=== PATIENT | female | born 1990 | race Caucasian/White ===

== ENCOUNTER 2021-02-13 00:07 | Inpatient (IN) | payer OTHER ==
[~2021-02-13] VITALS: Ht 172.7 cm; Wt 61.2 kg
[2021-02-14] VITALS (38 sets, daily range): BP systolic 68–125; BP diastolic 42–75
--- NOTE | 2021-02-14 01:26 | NUR ---
PT ARRIVED TO UNIT ACCOMPANIED BY EMT AT 0040. PT DROWSY, REFUSING TO COOPERATE WITH STAFF AND ASKING TO "BE LEFT ALONE." PT SETTLED IN BED BY STAFF. BRINE MIXER OPERATOR NOTIFIED OF PT'S ARRIVAL AT 0100 AND ARRIVED TO BEDSIDE AT 0110. PER BRINE MIXER OPERATOR WE WILL RESUME THE INSULIN GTT AT 23.5 AND NS AT 125 ML/HR. PT ST ON MONITOR WITH RATE IN THE 130s. BP SOFT 97/45 WTIH MAP 64. WILL CONTINUE TO MONITOR.
[2021-02-14 01:46] LABS: HEMATOCRIT 31.9 % (37.0-47.0); HEMOGLOBIN 10.3 gm/dL (12.0-15.0); MCH 29.4 pg (26.0-34.0); MCHC 32.1 g/dL (28.0-37.0); MCV 91.6 fL (80.0-100.0); PLATELET COUNT 373 thou/uL (150-400); RBC 3.48 mil/uL (4.20-5.00); RDW 13.1 % (10.5-14.5)
[2021-02-14 01:55] LABS: ALBUMIN 2.5 g/dL (3.4-5.0); CREATININE 2.6 mg/dL (0.6-1.0); MAGNESIUM 2.2 mg/dL (1.8-2.4); PHOSPHORUS 5.8 mg/dL (2.6-4.7); POTASSIUM 5.4 mmol/L (3.5-5.1); TOTAL BILIRUBIN 0.5 mg/dL (0.2-1.0); TOTAL PROTEIN 5.1 g/dL (6.4-8.2)
[2021-02-14 03:00] LABS: ABSOLUTE NEUTROPHILS 18.7 thou/uL (1.4-8.2)
[2021-02-14 03:01] LABS: ANISOCYTOSIS 1+; PLATELET ESTIMATE NORMAL; POIKILOCYTOSIS 1+
[2021-02-14 07:17] LABS: ALBUMIN 2.5 g/dL (3.4-5.0); CREATININE 1.9 mg/dL (0.6-1.0); MAGNESIUM 2.1 mg/dL (1.8-2.4); PHOSPHORUS 3.2 mg/dL (2.5-4.9); POTASSIUM 3.6 mmol/L (3.5-5.1)
--- NOTE | 2021-02-14 08:54 | NUR ---
ASSUMED CARE OF PT AT 0700 PT IS VERY DROWSY BUT WILL WAKE UP AND ANSWER ORIENTATION QUESTIONS. PT STATES SHE ENDS UPIN DKA FREQUENTLY DUE TO NOT BEING ABLE TO AFFORD HER INSULIN. PT IS PLEASANT AND COOPERATIVE
[2021-02-14 11:31] LABS: CREATININE 1.4 mg/dL (0.6-1.0); POTASSIUM 3.4 mmol/L (3.5-5.1)
--- NOTE | 2021-02-14 11:45 | NUR ---
chart review. DX DKA, she was transferred from [facility], per report she has been there many many times for same thing over the past year. [place]. Cm try to visit with her and she was to tired, bedside nurse tried to keep her up to visit with cm but she was cont to close her eyes. Letting her rest and will cont following as needed.
[2021-02-14] MEDS ORDERED: LANTUS SUBQ (21:54)
[2021-02-14] MEDS ORDERED: HUMALOG100 UNIT/1 SUBQ (21:55)
[2021-02-15] VITALS (11 sets, daily range): BP systolic 103–126; BP diastolic 57–97
[2021-02-15 01:06] LABS: GLYCOHEMOGLOBIN (HGB A1C) 9.9 % (4.8-5.6)
[2021-02-15 04:40] LABS: HEMATOCRIT 28.3 % (37.0-47.0); HEMOGLOBIN 9.4 gm/dL (12.0-15.0); MCH 29.6 pg (26.0-34.0); MCHC 33.1 g/dL (28.0-37.0); MCV 89.4 fL (80.0-100.0); RBC 3.17 mil/uL (4.20-5.00); RDW 13.6 % (10.5-14.5); WBC 12.9 thou/uL (4.0-11.0)
[2021-02-15 05:09] LABS: ALBUMIN 2.2 g/dL (3.4-5.0); CALCIUM 7.3 mg/dL (8.5-10.1); CREATININE 0.9 mg/dL (0.6-1.0); MAGNESIUM 2.1 mg/dL (1.8-2.4); PHOSPHORUS 2.4 mg/dL (2.5-4.9); POTASSIUM 3.6 mmol/L (3.5-5.1)
--- NOTE | 2021-02-15 05:50 | NUR ---
ASSUMED CARE OF PT AT 1900. PT DROWSY, ORIENTED X4. PT ON ISS. PT ABLE TO DRINK SUPPLEMENT DRINK AND EAT DINNER ROLL DURING THE NIGHT. REPORT GIVEN TO MAGDALENO WONG IN CCU AT 0520. PT TRANSFERED AT 0545 TO CCU, ROOM 214 AT 0545. PT IS MAKING PROGRESS TOWARDS PLAN OF CARE.
--- NOTE | 2021-02-15 06:37 | NUR ---
pt arrived from icu at around 0545. she is alert and oriented. wakes up, answeres questions, she is cooperative, she is otherwise sleeping rest of the time.Reports some slight back pain, but appears to be in no distress. she was able to use bathroom upon coming fro ICU, voiding adeqautely. Vitals taken,wnl, afebrile. On telemetry, SR.No concerns at this time.Call light within reach.
[2021-02-15] MEDS ORDERED: REGLAN 5 MG TAB5 MG PO (11:36)
[2021-02-15] MEDS ORDERED: CEPHALEXIN500 MG PO (11:36)
[2021-02-15] MEDS ORDERED: HUMULIN R100 UNIT/1 SUBQ (11:36)
[2021-02-15] MEDS ORDERED: LANTUS SUBQ (11:36)
--- NOTE | 2021-02-15 14:53 | NUR ---
CM SPOKE TO SULEMA AT [facility]. PT COPAY AND INSULIN SUPPLIES WITH [place] [employer]ICA[employer] WILL BE $13-$15. PT REPORTS SHE WILL TAKE HER SCRIPS TO [facility] AND AGREES TO PAY FOR HER MEDS. NO FURTHER CM NEEDS.
== END 2021-02-15 15:30 | disposition home or self-care (01) | DRG 682 ==
LOC: ICU 00:07 → 2N 02-14 00:45
PROVIDERS: Nurse Practitioner Family; ADMIT Hospitalist; ATTEND Hospitalist
DX: N17.9 Acute kidney failure, unspecified (principal); G93.41 Metabolic encephalopathy; E11.10 Type 2 diabetes mellitus with ketoacidosis without coma; E43 Unspecified severe protein-calorie malnutrition; N39.0 Urinary tract infection, site not specified; E87.6 Hypokalemia; I95.9 Hypotension, unspecified; D64.9 Anemia, unspecified; R74.01 Elevation of levels of liver transaminase levels; D72.829 Elevated white blood cell count, unspecified; F15.10 Other stimulant abuse, uncomplicated; E11.43 Type 2 diabetes mellitus with diabetic autonomic (poly)neuropathy; K31.84 Gastroparesis; Z28.21 Immunization not carried out because of patient refusal; Z91.19 Patient's noncompliance with other medical treatment and regimen; Z88.6 Allergy status to analgesic agent; Z91.048 Other nonmedicinal substance allergy status; Z71.51 Drug abuse counseling and surveillance of drug abuser; Z68.20 Body mass index [BMI] 20.0-20.9, adult
CPT/HCPCS: 10078